=== PATIENT | male | born 1965 | race Two or more races ===

== ENCOUNTER 2018-05-27 01:02 | Emergency (ER) | payer MEDICARE ==
[~2018-05-27] VITALS: Ht 165.1 cm; Wt 69.0 kg
[2018-05-27] MEDS ORDERED: ASPIRIN 81MG TABLET PO ONE (07:15)
[2018-05-27 07:33] VITALS: BP 159/101
[2018-05-27 08:11] LABS: BASOPHILS % 1.3 % (0.0-2.0); EOSINOPHILS % 7.6 % (0.0-5.0); HEMATOCRIT. 28.4 % (42.0-52.0); HEMOGLOBIN. 9.4 g/dL (14.0-18.0); LYMPHOCYTES % 20.1 % (20.0-50.0); MEAN CORPUSCULAR HEMOGLOBIN 30.1 pg (28.0-32.0); MEAN PLATELET VOLUME 7.3 fl (7.4-10.4); MONOCYTES % 8.2 % (2.0-8.0); NEUTROPHILS % 62.8 % (40.0-76.0); PLATELET 325 x1000/uL (130-400); RED BLOOD CELL COUNT 3.12 mill/uL (4.7-6.1); RED CELL DISTRIBUTION WIDTH 16.2 % (11.6-14.6)
[2018-05-27 08:17] LABS: CHLORIDE 98 mEq/L (98-107)
[2018-05-27 08:20] LABS: PARTIAL THROMBOPLASTIN TIME 30.3 sec (23.4-31.0); PROTHROMBIN TIME 10.3 sec (9.1-11.1)
== END 2018-05-27 12:23 | disposition left against medical advice (07) ==
LOC: ER 01:02 → CANBEDREQ 13:50
DX: E87.5 Hyperkalemia (principal); R06.02 Shortness of breath; I13.11 Hypertensive heart and chronic kidney disease without heart failure, with stage 5 chronic kidney disease, or end stage renal disease; N18.6 End stage renal disease; Z99.2 Dependence on renal dialysis; Z94.0 Kidney transplant status; Z87.891 Personal history of nicotine dependence
CPT/HCPCS: 36415; 71045; 83880; 84484; 93005; 99284